=== PATIENT | female | born 1985 | race Asian ===

== ENCOUNTER 2019-11-05 11:26 | Emergency (ER) | payer SELFPAY ==
[~2019-11-05] VITALS: Ht 149.9 cm; Wt 72.6 kg
[2019-11-05 11:31] VITALS: BP 228/142
--- NOTE | 2019-11-05 11:45 | NUR ---
BLOOD DRAWN AND COLLECTED BY LAB
[2019-11-05 11:56] LABS: BASOPHILS # (AUTO) 0.1 K/uL (0.00-0.22); EOSINOPHILS # (AUTO) 0.1 K/uL (0-0.4); EOSINOPHILS % (AUTO) 1.5 % (0.0-4.0); HEMATOCRIT 46.2 % (36-48); HEMOGLOBIN 15.6 g/dL (12.0-16.0); LYMPHOCYTES # (AUTO) 2.6 K/uL (2.5-16.5); LYMPHOCYTES % (AUTO) 30.7 % (20.5-51.1); MEAN CORPUSCULAR HEMOGLOBIN 31 pg (27-31); MEAN CORPUSCULAR HGB CONC 34 g/dL (33-37); MEAN CORPUSCULAR VOLUME 90.3 fL (80-94); MONOCYTES # (AUTO) 0.9 K/uL (0.8-1.0); MONOCYTES % (AUTO) 10.3 % (1.7-9.3); NEUTROPHILS # (AUTO) 4.8 K/uL (1.8-7.7); NEUTROPHILS % (AUTO) 56.5 % (42.2-75.2); PLATELET COUNT (AUTO) 332 K/uL (140-450); RED BLOOD CELL COUNT(AUTO) 5.11 MIL/uL (4.20-5.40); RED CELL DISTRIBUTION WIDTH 13.9 % (11.6-13.7); WHITE BLOOD COUNT (AUTO) 8.4 K/uL (4.8-10.8)
[2019-11-05 12:04] LABS: ANION GAP 12.6 (8-16); CARBON DIOXIDE 27.8 mmol/L (21-32); CREATININE 0.8 mg/dL (0.6-1.3); POTASSIUM 4.4 mmol/L (3.5-5.1)
[2019-11-05 12:05] LABS: APPEARANCE,URINE CLEAR (CLEAR); BILIRUBIN,URINE NEGATIVE (NEGATIVE); BLOOD, URINE 1+ (NEGATIVE); COLOR,URINE YELLOW (YELLOW); LEUKOCYTE ESTERASE ,URINE NEGATIVE (NEGATIVE); NITRITE, URINE NEGATIVE (NEGATIVE); UGLUCOSE NEGATIVE (NEGATIVE)
[2019-11-05 12:11] LABS: ALBUMIN 3.8 g/dL (3.4-5.0); TOTAL BILIRUBIN 0.6 mg/dL (0.0-1.0)
--- NOTE | 2019-11-05 12:20 | NUR ---
c/o awoke with dizziness, occipital headache, and nausea yesterday and today---took her b/p today 224/108---Pt aox4 , afibrile , ambulatory with steady gait. hx--denies rx---none
--- NOTE | 2019-11-05 12:22 | NUR ---
anu tate at bedside.
[2019-11-05 12:23] LABS: RBC,URINE 0-5 /HPF (0-5); WBC,URINE 0-5 /HPF (0-5)
[2019-11-05 12:25] LABS: PROTHROMBIN TIME 10.2 secs (10.8-13.4)
--- NOTE | 2019-11-05 12:33 | NUR ---
pt comfortable in bed side rails up x1.
--- NOTE | 2019-11-05 13:19 | NUR ---
anu tate at bedside reevaluating pt.
[2019-11-05 13:21] VITALS: BP 184/99
--- NOTE | 2019-11-05 13:22 | NUR ---
Patient discharged with v/s stable. Written and verbal after care instructions given and explained regarding hypertension. Patient alert, oriented and verbalized understanding of instructions. Ambulatory with steady gait. All questions addressed prior to discharge. ID band removed. Patient advised to follow up with PMD. Rx of hydrochlorothiazide. given. Patient educated on indication of medication including possible reaction and side effects. Opportunity to ask questions provided and answered.
== END 2019-11-05 13:22 | disposition home or self-care (01) ==
LOC: MED 11:26
DX: I10 Essential (primary) hypertension (principal)
CPT/HCPCS: 36415; 71045; 80053; 81001; 81002; 81025; 84484; 85025; 85610; 93005; 99285

== ENCOUNTER 2021-11-03 13:46 | Emergency (ER) | payer BC, OTHER ==
[~2021-11-03] VITALS: Ht 152.4 cm; Wt 79.8 kg
--- NOTE | 2021-11-03 14:02 | NUR ---
pt called no answer at this time
--- NOTE | 2021-11-03 14:13 | NUR ---
pt called no answer at this time
[2021-11-03 14:31] VITALS: BP 249/130
--- NOTE | 2021-11-03 15:00 | NUR ---
36YO FEMALE PT C/O TIGHT 6/10 CHEST PAIN DUE TO HIGH BLOOD PRESSURE AND STRESS. PT 10 WEEKS AND HAD BP OF 235/110 DURING OB VISIT TODAY. PT WAS TOLD TO COME TO ER BY PROVIDER. PT REPORTS HX OF HTN , DENIES TAKING MEDICATION AT THIS TIME AND MANAGES BLOOD PRESSURE BY "BEING IN DARK ROOM AND TELLING KIDS TO GIVE HER SPACE". PT DENIES SOB OR N/V/D. PT AAOX4, RESPIRATIONS EVEN AND UNLABORED. ALLERGIES: SHELLFISH HX: HTN
[2021-11-03 16:19] LABS: BASOPHILS # (AUTO) 0.1 K/uL (0.00-0.22); BASOPHILS % (AUTO) 0.8 % (0.0-2.0); EOSINOPHILS # (AUTO) 0.2 K/uL (0-0.4); EOSINOPHILS % (AUTO) 1.4 % (0.0-4.0); HEMATOCRIT 44.6 % (36-48); HEMOGLOBIN 14.9 g/dL (12.0-16.0); LYMPHOCYTES # (AUTO) 2.5 K/uL (2.5-16.5); LYMPHOCYTES % (AUTO) 21.3 % (20.5-51.1); MEAN CORPUSCULAR HEMOGLOBIN 30 pg (27-31); MEAN CORPUSCULAR HGB CONC 34 g/dL (33-37); MEAN CORPUSCULAR VOLUME 89.8 fL (80-94); MONOCYTES # (AUTO) 1.3 K/uL (0.8-1.0); MONOCYTES % (AUTO) 10.6 % (1.7-9.3); NEUTROPHILS # (AUTO) 7.8 K/uL (1.8-7.7); NEUTROPHILS % (AUTO) 65.9 % (42.2-75.2); PLATELET COUNT (AUTO) 326 K/uL (140-450); RED BLOOD CELL COUNT(AUTO) 4.97 MIL/uL (4.20-5.40); RED CELL DISTRIBUTION WIDTH 14.2 % (11.6-13.7); WHITE BLOOD COUNT (AUTO) 11.9 K/uL (4.8-10.8)
[2021-11-03] MEDS ORDERED: DOPPLER MC ONE (17:57)
[2021-11-03 17:58] LABS: ANION GAP 16.8 (8-16)
[2021-11-03 18:24] LABS: ASPARTATE AMINOTRANSFERASE 16 U/L (15-37); CARBON DIOXIDE 21.7 mmol/L (21-32); CHLORIDE 102 mmol/L (98-107); GLUCOSE 88 mg/dL (74-106); POTASSIUM 3.5 mmol/L (3.5-5.1); SODIUM SERUM 137 mmol/L (136-145); TOTAL BILIRUBIN 0.3 mg/dL (0.0-1.0); UREA NITROGEN, BLOOD 13 mg/dL (7-18)
[2021-11-03 18:25] LABS: ALBUMIN 3.5 g/dL (3.4-5.0); LACTATE DEHYDROGENASE 150 U/L (81-234)
[2021-11-03 18:54] LABS: APPEARANCE,URINE CLEAR (CLEAR); BILIRUBIN,URINE NEGATIVE (NEGATIVE); BLOOD, URINE TRACE-I (NEGATIVE); COLOR,URINE YELLOW (YELLOW); LEUKOCYTE ESTERASE ,URINE NEGATIVE (NEGATIVE); NITRITE, URINE NEGATIVE (NEGATIVE); UGLUCOSE NEGATIVE (NEGATIVE)
[2021-11-03 19:04] LABS: RBC,URINE 0-5 /HPF (0-5); WBC,URINE NONE SEEN /HPF (0-5)
--- NOTE | 2021-11-03 19:05 | NUR ---
REPORT GIVEN TO ALLEN RN. ALL QUESTIONS ANSWERED. TRANSFER OF CARE AT THIS TIME
[2021-11-03 19:07] LABS: CREATININE 0.7 mg/dL (0.6-1.3); GFR ARICAN-AMERICAN 122 mL/min (>90)
--- NOTE | 2021-11-03 19:20 | NUR ---
ER MD AT BEDSIDE PERFORMING US
--- NOTE | 2021-11-03 19:20 | NUR ---
Liz heck in ED - 11/03/21 at 1928 by MARLENE ER MD AT BEDSIDE EXAMINING PATIENT
[2021-11-03] MEDS ORDERED: TRA200 PO (19:47)
[2021-11-03] MEDS ORDERED: LABE100T9 PO (19:47)
[2021-11-03] MEDS: LABETALOL 100 MG TAB PO STA (20:10)
[2021-11-03 20:56] VITALS: BP 198/97
--- NOTE | 2021-11-03 20:56 | NUR ---
Patient discharged- ER MD aware of increased BP but is comfortable sending patient home. Written and verbal after care instructions given and explained about first trimester of , hypertension during , and hypertension in adult. Patient alert, oriented and verbalized understanding of instructions. Ambulatory with steady gait. All questions addressed prior to discharge. ID band removed. Patient advised to follow up with PMD. Rx of Labetolol hydrochloride and trandate given. Patient educated on indication of medication including possible reaction and side effects. Opportunity to ask questions provided and answered.
== END 2021-11-03 20:56 | disposition home or self-care (01) ==
LOC: MED 13:46
DX: O16.1 Unspecified maternal hypertension, first trimester (principal); Z3A.10 10 weeks gestation of pregnancy; Z90.13 Acquired absence of bilateral breasts and nipples
CPT/HCPCS: 36415; 80053; 81001; 83615; 84484; 85025; 93005; 99285